=== PATIENT | female | born 1945 | race African-American/Black ===

== ENCOUNTER 2022-08-01 11:53 | Emergency (ER) | payer BC, SELFPAY ==
[2022-08-01 12:06] VITALS: BP 146/70; PULSE 64; RESP 20; TEMP 36.6; O2SAT 99; BMI 45.0
--- NOTE | 2022-08-01 13:33 | ED.GENADULT ---
HPI - General Adult General Time Seen by Provider: 13:33 Date Seen: 08/01/22 Chief complaint: Fall/Minor Trauma Stated complaint: fell,hurt left shoulder Time Seen by Provider: 08/01/22 13:24 Source: patient and RN notes reviewed Mode of arrival: ambulatory Limitations: no limitations History of Present Illness HPI narrative: Patient is a 77-year-old female coming in with ongoing complaint of left shoulder pain after a fall 2 days ago. She tripped and fell on a sidewalk. She states her shoulder has continued hurting her, she cannot raise it above her head. She also notes some left hip pain with walking. She also states it hurts below her right knee in the leg. It is above the ankle but below the knee. She does have some baseline musculoskeletal issues any problems for which she sees Dr. Rosa in clinic. She is denying any acute back pain, did not hit her head. She used to be on Plavix but states she is no longer on that. There is no numbness tingling in any of the involved extremities. Feels like she has normal sensation. Related Data Home Medications Medication Instructions Recorded Confirmed cetirizine 10 mg tablet 10 mg PO DAILY 08/01/22 08/01/22 clopidogrel 75 mg tablet 75 mg PO DAILY 08/01/22 08/01/22 diltiazem HCl 180 mg 180 mg PO DAILY 08/01/22 08/01/22 capsule,extended release 24 hr docusate sodium 100 mg capsule 100 mg PO BID 08/01/22 08/01/22 furosemide 40 mg tablet mg PO PRN weight gain 08/01/22 hydrocodone 5 mg-acetaminophen 325 1 tab PO Q8H PRN 08/01/22 08/01/22 mg tablet losartan 100 mg tablet 100 mg PO DAILY 08/01/22 08/01/22 metoprolol succinate 100 mg mg PO BID 08/01/22 tablet,extended release 24 hr rosuvastatin 20 mg tablet 20 mg PO HS 08/01/22 08/01/22 Allergies Allergy/AdvReac Type Severity Reaction Status Date / Time Sulfa (Sulfonamide Allergy Mild Verified 08/01/22 12:12 Antibiotics) eggs Allergy Mild Uncoded 08/01/22 12:12 Review of Systems Status of ROS: Reports: 6 or more systems reviewed and unremarkable except as noted in History and below PFSH PFSH Social History Smoking Status: Never smoker How often do you have a drink containing alcohol: never AUDIT-C Alcohol total score: 0 Non-prescribed substance use: denies use Exam Const: Vital Signs, click to edit/add: Vital Signs - 24 hr 08/01/22 12:06 08/01/22 13:37 Temperature 97.9 F 98.1 F Pulse Rate [Left P ulse Oximeter] 64 62 Respiratory Rate 20 16 Blood Pressure [Ri ght Upper Arm] 146/70 H 129/73 Pulse Oximetry 99 99 Oxygen Delivery Me thod Room Air Room Air Documenting provider has reviewed patient's vital signs: yes Common normals: no apparent distress, oriented x3, no limitations and alert General appearance: cooperative, comfortable and well kempt HENMT: Common normals: normocephalic, head/scalp atraumatic and hearing grossly normal bilaterally Head and scalp: normocephalic and atraumatic Eye: Common normals: PERRL, EOMs intact bilaterally, conjunctivae normal and no scleral icterus Conjunctiva: conjunctiva(e) normal Pupil: PERRL Neck & C-Spine: Common normals: full ROM, no lymphadenopathy, supple, no meningeal signs, no JVD and thyroid normal Thyroid: thyroid normal Resp: Common normals: normal respiratory effort, no retractions, no use of accessory muscles and clear to auscultation bilaterally Auscultation: clear to auscultation bilaterally Cardio: Common normals: no JVD, regular rate, regular rhythm, S1 normal heart sound, S2 normal heart sound, no gallops, no clicks, no murmurs and no rub Rate: regular rate Rhythm: regular rhythm Heart sounds: S1 normal and S2 normal Neuro: Common normals: oriented x3 Sensorium/orientation: alert Meningeal signs: no meningeal signs Psych: Appearance: well kempt Course Reevaluation(s) Reevaluation #1: Reviewed with surely that x-rays are negative for any fracture. She is happy to hear this. Did review with her though that it does not mean that she could not have aggravated her rotator cuff, possibly even injured it. We cannot see that on x-ray. I a.m. recommend Tylenol per bottle directions, ice or heat whichever helps and follow up in clinic. She is in agreement with this plan. Time: 15:34 Vital Signs Vital signs: Initial Vital Signs Temperature 97.9 F 08/01/22 12:06 Temperature Source Temporal Artery Scan 08/01/22 12:06 Pulse Rate 64 08/01/22 12:06 Pulse Rhythm 08/01/22 12:06 Respiratory Rate 20 08/01/22 12:06 Blood Pressure 146/70 H 08/01/22 12:06 Blood Pressure Mean 95 08/01/22 12:06 Blood Pressure Position Sitting 08/01/22 12:06 Pulse Oximetry 99 08/01/22 12:06 Oxygen Delivery Method 08/01/22 12:06 Vital Signs Temperature 97.9 F 08/01/22 12:06 Pulse Rate 64 08/01/22 12:06 Respiratory Rate 20 08/01/22 12:06 Blood Pressure 146/70 H 08/01/22 12:06 Pulse Oximetry 99 08/01/22 12:06 Oxygen Delivery Method 08/01/22 12:06 Temperature 98.1 F 08/01/22 13:37 Pulse Rate 62 08/01/22 13:37 Respiratory Rate 16 08/01/22 13:37 Blood Pressure 129/73 08/01/22 13:37 Pulse Oximetry 99 08/01/22 13:37 Oxygen Delivery Method 08/01/22 13:37 Medical Decision Making Imaging Data X-ray right tib-fib: Attestation: I have reviewed the pertinent imaging results. My impression: A my preliminary review, I see no acute pathology, wait radiology over-read. Radiologist's impression: Patient: CAROLINA JACQUES Facility:?[facility] Patient ID:?[id number] Site Patient ID:?[id number]. Site :?1945 Study:?XRay Extremity Right TIB/FIB 2V-08/01/2022 2:35:36 PM Ordering Physician:Rossi العراقي Final Report: Indication: Fall with pain. Technique: Two view AP and lateral x-rays of the right lower leg. Comparison: None are available Findings: Chronic bony prominence in the proximal tibia on the lateral view, presumably in the anterior notch region. Some degenerative changes in all 3 compartments of the right knee. The tibia and fibula are otherwise unremarkable. No acute fractures or foreign bodies identified. Impression: No evidence for acute fracture. Dictated by Raymond Waldron MD @ 08/01/2022 2:42:31 PM (Electronic Signature) X-ray left shoulder: Attestation: I have reviewed the pertinent imaging results. My impression: I do not appreciate any acute fracture on my preliminary read. Await Radiology over-read. Radiologist's impression: Patient: [facility] Facility:?[facility] Patient ID:?[id number] Site Patient ID:?[id number]. Site :?1945 Study:?XRay Shoulder Left 3V-08/01/2022 2:37:03 PM Ordering Physician:?Sangeeta العراقي Final Report: Indication: Fall Technique: Left shoulder 3 views. Comparison: None Findings: Bones: Alignment is normal. No fractures or bone lesions. 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 Soft tissues: Unremarkable. Impression: No sign of fracture or dislocation of the left shoulder. Dictated by Gómez Anders MD @ 08/01/2022 2:54:57 PM (Electronic Signature) X-ray left hip: Attestation: I have reviewed the pertinent imaging results. My impression: I do not appreciating any acute fracture of the hip or pelvis on my preliminary read. Await Radiology over-read Radiologist's impression: Patient: CAROLINA JACQUES Facility:?[facility] Patient ID:?[id number] Site Patient ID:?[id number]. Site :?1945 Study:?XRay Hip Left 3V-08/01/2022 2:38:10 PM Ordering Physician:Rossi العراقي Final Report: Indication: Hip pain Technique: Left hip 3 views Comparison: None Findings: Alignment is normal. No fractures or bone lesions. 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 Impression: No fracture dislocation of the left hip. Dictated by Gómez Anders MD @ 08/01/2022 3:01:07 PM (Electronic Signature) Critical Care Time Critical Care Time Critical Care Time: No Discharge Plan Discharge Clinical Impression: Acute pain of right lower extremity, Acute pain of left hip, Acute pain of left shoulder, Fall Patient Disposition: Home, Self-Care Condition: Stable Instructions: Fall Prevention for Older Adults (ED), Shoulder Pain (ED), Hip Pain (ED) Additional Instructions: Use Tylenol 1000 mg 3 times a day as needed for pain. Can try ice or heat to the painful areas and use whichever works better. Do need to follow up in clinic, see Dr. Rosa particularly for your shoulder. Activity Level: Activity as Tolerated Prescriptions: No Action furosemide 40 mg tablet PO PRN (Reason: weight gain) Label Comments: TAKE ONE TABLET BY MOUTH IF YOU NOTICE A WEIGHT GAIN OF 3 LBS IN ONE DAY OR 5 LBS IN ONE WEEK cetirizine 10 mg tablet 10 mg PO DAILY Label Comments: TAKE 1 TABLET BY MOUTH DAILY AT BEDTIME diltiazem HCl 180 mg capsule,extended release 24hr 180 mg PO DAILY Label Comments: TAKE 1 CAPSULE (180 MG) BY MOUTH ONCE DAILY. hydrocodone-acetaminophen 5-325 mg tablet 1 tab PO Q8H PRN Label Comments: TAKE ONE TABLET BY MOUTH EVERY 8 HOURS NEEDED FOR PAIN(NEEDS TO LAST AT LEAST 30 DAYS) ACETAMINOPHEN DOSE: 4000MG IN 24 HOURS metoprolol succinate 100 mg tablet extended release 24 hr PO BID Label Comments: TAKE 3 TABLETS BY MOUTH ONCE DAILY. clopidogrel 75 mg tablet 75 mg PO DAILY Label Comments: TAKE 1 TABLET (75 MG) BY MOUTH ONCE DAILY. docusate sodium 100 mg capsule 100 mg PO BID Label Comments: TAKE 1 CAPSULE (100 MG) BY MOUTH 2 TIMES DAILY. losartan 100 mg tablet 100 mg PO DAILY Label Comments: TAKE ONE TABLET BY MOUTH DAILY rosuvastatin 20 mg tablet 20 mg PO HS Label Comments: TAKE 1 TABLET (20 MG) BY MOUTH AT BEDTIME. Follow Up/Referrals: Debra Marinelli DO [Primary Care Provider] - Stand Alone Forms: [facility] Info Instructions
[2022-08-01 13:37] VITALS: BP 129/73; PULSE 62; RESP 16; TEMP 36.7; O2SAT 99
--- NOTE | 2022-08-01 13:37 | CRLHL7_ITS ---
For Patients: As a result of the Cures Act, medical imaging exams and procedure reports are released immediately into your electronic medical record. You may view this report before your referring provider. If you have questions, please contact your health care provider. Indication: Fall Technique: Left shoulder 3 views. Comparison: None Findings: Bones: Alignment is normal. No fractures or bone lesions. 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 Soft tissues: Unremarkable. Impression: No sign of fracture or dislocation of the left shoulder. Dictated by Gómez Anders MD @ 08/01/2022 2:54:57 PM (Electronically Signed)
--- NOTE | 2022-08-01 13:37 | CRLHL7_ITS ---
For Patients: As a result of the Century Cures Act, medical imaging exams and procedure reports are released immediately into your electronic medical record. You may view this report before your referring provider. If you have questions, please contact your health care provider. Indication: Hip pain Technique: Left hip 3 views Comparison: None Findings: Alignment is normal. No fractures or bone lesions. 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 Impression: No fracture dislocation of the left hip. Dictated by Gómez Anders MD @ 08/01/2022 3:01:07 PM (Electronically Signed)
--- NOTE | 2022-08-01 13:37 | CRLHL7_ITS ---
For Patients: As a result of the Century Cures Act, medical imaging exams and procedure reports are released immediately into your electronic medical record. You may view this report before your referring provider. If you have questions, please contact your health care provider. Indication: Fall with pain. Technique: Two view AP and lateral x-rays of the right lower leg. Comparison: None are available Findings: Chronic bony prominence in the proximal tibia on the lateral view, presumably in the anterior notch region. Some degenerative changes in all 3 compartments of the right knee. The tibia and fibula are otherwise unremarkable. No acute fractures or foreign bodies identified. Impression: No evidence for acute fracture. Dictated by Raymond Waldron MD @ 08/01/2022 2:42:31 PM (Electronically Signed)
== END 2022-08-01 15:58 | disposition home or self-care (01) ==
PROVIDERS: Emergency Provider Family Medicine; PCP Family Medicine
DX: S49.92XA Unspecified injury of left shoulder and upper arm, initial encounter (principal); S89.92XA Unspecified injury of left lower leg, initial encounter; S79.912A Unspecified injury of left hip, initial encounter; W01.10XA Fall on same level from slipping, tripping and stumbling with subsequent striking against unspecified object, initial encounter; Y93.01 Activity, walking, marching and hiking; Y92.480 Sidewalk as the place of occurrence of the external cause; Y99.8 Other external cause status
CPT/HCPCS: 73030; 73502; 73590; 99283

== ENCOUNTER 2023-01-03 13:30 | Outpatient (RCR) | payer BC, SELFPAY | END 2023-02-27 09:34 | disposition home or self-care (01) | PROVIDERS: PCP Family Medicine; Visit Provider Family Medicine | DX: M48.062 Spinal stenosis, lumbar region with neurogenic claudication (principal); M21.069 Valgus deformity, not elsewhere classified, unspecified knee; M17.0 Bilateral primary osteoarthritis of knee; M19.011 Primary osteoarthritis, right shoulder; S70.01XA Contusion of right hip, initial encounter; Z51.89 Encounter for other specified aftercare | CPT/HCPCS: 97110; 97162 ==